=== PATIENT | female | born 1960 | race Caucasian/White ===

== ENCOUNTER 2017-01-07 16:28 | Emergency (ER) | payer OTHER ==
[~2017-01-07] VITALS: Ht 170.2 cm; Wt 66.2 kg
[~2017-01-07 16:28] MED LIST: ABRAXANE100 MG/20 IV; ACIDOPHILUS LA1 EACH PO; AFRIN30 ML NAS; ALOE VERA237 ML TOP; ANTI-NAUSEA GI1 EACH PO; AVASTIN100 MG/4 M IV; BENEFIBER1 EAC1 PO; CEPHALEXIN500 MG PO; CIPROFLOXACIN500 MG PO; COL-RITE100 MG PO; DEXAMETHASONE4 MG PO; DICLOFENAC SODI75 MG PO; DOCUSATE SODIU100 MG PO; DOXYCYCLINE HY100 MG PO; DURAGESIC1 EAC1 TD; ENOXAPARIN60 MG/0.6 SUB-Q; EXCEDRIN MIGRA1 EAC2 PO; FIBER GUMMIES2.5 GM PO; FLAX SEED; GINGER ROOT; IBUPROFEN600 MG PO; LORAZEPAM1 MG PO; METOPROLOL TART25 MG PO; MIRALAX17 GM PO; MULTI ANTIBIOTI14 GM; MULTIVITAMINS1 EAC7 PO; NICOTINE PATCH1 EA TD; NORCO 5-325 TA1 EACH PO; OMEPRAZOLE20 MG PO; ONDANSETRON HCL8 MG PO; ONDANSETRON ODT8 MG PO; OXYCODONE HCL5 MG PO; PERCOCET 5-3251 EACH PO; PERCOCET 7.5-31 EACH PO; PROBIOTIC1 EAC1 PO; PROCHLORPERAZIN10 MG PO; PROTONIX40 MG PO; REGLAN10 MG PO; ZITHROMAX250 MG PO; ZOFRAN ODT4 MG PO; ZOFRAN ODT4 MG SL; ZOFRAN8 MG PO
[2017-01-07] MEDS ORDERED: PROTONIX40 MG PO (16:46)
[2017-01-07] MEDS ORDERED: DOXYCYCLINE HY100 MG PO (16:46)
[2017-01-07] MEDS ORDERED: NYSTATIN-TRIAMC15 G1 TOP (16:47)
[2017-01-07] MEDS ORDERED: EXCEDRIN MIGRA1 EAC2 PO (16:47)
[2017-01-07] MEDS ORDERED: BENADRYL25 MG PO (16:47)
[2017-03-28] MEDS ORDERED: ZEJULA100 MG PO (10:40)
[2017-04-25] MEDS ORDERED: PHENERGAN25 MG PR (11:03)
[2017-07-02] MEDS ORDERED: CIPRO500 MG PO (13:53)
[2017-07-04] MEDS ORDERED: NORCO 5-325 TA1 EACH PO (10:07)
== END 2017-01-07 17:52 | disposition home or self-care (01) ==
LOC: ED 16:28
DX: R13.10 Dysphagia, unspecified (principal); C56.9 Malignant neoplasm of unspecified ovary; F17.200 Nicotine dependence, unspecified, uncomplicated; Z90.710 Acquired absence of both cervix and uterus; Z90.49 Acquired absence of other specified parts of digestive tract; Z88.8 Allergy status to other drugs, medicaments and biological substances; Z88.0 Allergy status to penicillin; Z88.5 Allergy status to narcotic agent; Z79.899 Other long term (current) drug therapy; Z79.82 Long term (current) use of aspirin
CPT/HCPCS: 99282

== ENCOUNTER 2017-04-17 09:21 | Emergency (ER) | payer OTHER ==
[~2017-04-17] VITALS: Ht 170.2 cm; Wt 60.8 kg
[~2017-04-17 09:21] MED LIST changes: +BENADRYL25 MG PO; +NYSTATIN-TRIAMC15 G1 TOP; +ZEJULA100 MG PO
[2017-04-17] MEDS ORDERED: PERCOCET 5-3251 EACH PO (12:49)
[2017-04-17] MEDS ORDERED: PROMETHAZINE HC25 M1 PO (12:49)
[2017-04-25] MEDS ORDERED: PHENERGAN25 MG PR (11:03)
[2017-07-02] MEDS ORDERED: CIPRO500 MG PO (13:53)
[2017-07-04] MEDS ORDERED: NORCO 5-325 TA1 EACH PO (10:07)
== END 2017-04-17 13:23 | disposition home or self-care (01) ==
LOC: ED 09:21
DX: C56.9 Malignant neoplasm of unspecified ovary (principal); F17.200 Nicotine dependence, unspecified, uncomplicated; Z90.710 Acquired absence of both cervix and uterus; Z88.8 Allergy status to other drugs, medicaments and biological substances; Z88.0 Allergy status to penicillin; Z88.5 Allergy status to narcotic agent; Z79.899 Other long term (current) drug therapy; Z79.82 Long term (current) use of aspirin
CPT/HCPCS: 36415; 74176; 80053; 81001; 83690; 85025; 96361; 96374; 96375; 99284; J1170; J2405; J7030

== ENCOUNTER 2017-06-25 11:27 | Emergency (ER) | payer OTHER ==
[~2017-06-25] VITALS: Ht 170.2 cm; Wt 57.1 kg
[~2017-06-25 11:27] MED LIST changes: +PHENERGAN25 MG PR; +PROMETHAZINE HC25 M1 PO
[2017-07-02] MEDS ORDERED: CIPRO500 MG PO (13:53)
[2017-07-04] MEDS ORDERED: NORCO 5-325 TA1 EACH PO (10:07)
== END 2017-06-25 15:03 | disposition home or self-care (01) ==
LOC: ED 11:27
DX: R11.2 Nausea with vomiting, unspecified (principal); C78.89 Secondary malignant neoplasm of other digestive organs; C78.7 Secondary malignant neoplasm of liver and intrahepatic bile duct; C56.9 Malignant neoplasm of unspecified ovary; F17.200 Nicotine dependence, unspecified, uncomplicated; Z90.710 Acquired absence of both cervix and uterus; Z88.8 Allergy status to other drugs, medicaments and biological substances; Z88.0 Allergy status to penicillin; Z88.1 Allergy status to other antibiotic agents
CPT/HCPCS: 80053; 82150; 83690; 85025; 96361; 96374; 96375; 99283; J2405; J7030

== ENCOUNTER 2017-06-29 20:21 | Emergency (ER) | payer OTHER ==
[~2017-06-29] VITALS: Ht 170.2 cm; Wt 57.1 kg
--- OUTSIDE RECORDS SUMMARY | 2017-06-29 20:39 | XMS | Clinical Summary ---
Demographics + + + | Address | [address] | | | [place] [address] | + + + | Home Phone | | + + + | Preferred Language | Unknown | + + + | Marital Status | | + + + | Spiritism Affiliation | CAT | + + + | Race | White | + + + | Ethnic Group | Not or | + + + Author + + + | Author | [facility] | + + + | Organization | [facility] | + + + | Address | Unknown | + + + | Phone | Unavailable | + + + Support +------+ + + + | Name | Relationship | Address | Phone | +------+ + + + ECON | Unknown | | +------+ + + + ECON | [place] [address] | | +------+ + + + Care Team Providers + +------+-------+ | Care Engagement Director Name | Role | Phone | + +------+-------+ | Roman Sanchez DO | PP | tel | + +------+-------+ Source Comments ABBI is fully live on both [facility] and [facility] InPatient.[facility] Allergies + + + + + + | Active Allergy | Reactions | Severity | Noted | Comments | | | | | Date | | + + + + + + | Codeine | | | 11/27/19 | Doesn't remember | | | | | 14 | reaction. Has | | | | | | tolerated | | | | | | oxycodone/morphine | + + + + + + | Penicillins | | High | 11/27/19 | As a child. | | | | | 14 | remembers that she | | | | | | required | | | | | | hospitalization. | | | | | | Tolerates | | | | | | cephalosporins. | + + + + + + Current Medications + + +-------+---------+------+------+-------+ | Prescription | Sig. | Disp. | Refills | Star | End | Statu | | | | | | t | Date | s | | | | | | Date | | | + + +-------+---------+------+------+-------+ | TEMAZEPAM 15 mg | Take 15 mg by mouth | | | 09/3 | | Activ | | oral capsule | once daily at | | | 0/20 | | e | | | bedtime as needed. | | | 14 | | | + + +-------+---------+------+------+-------+ | OMEPRAZOLE 20 mg | Take 20 mg by mouth | | | 09/0 | | Activ | | oral capsule,delayed | once daily at | | | 8/20 | | e | | release(DR/EC) | bedtime. | | | 14 | | | + + +-------+---------+------+------+-------+ | LORazepam 1 mg | Take 1 mg by mouth | | | | | Activ | | oral tablet | every four hours as | | | | | e | | | needed for anxiety. | | | | | | + + +-------+---------+------+------+-------+ Active Problems + + + | Problem | Noted Date | + + + | Vaginal cuff dehiscence | 12/25/2012 | + + + | Malignant neoplasm of ovary (HCC) | 12/07/2012 | + + + | Abdominal mass | 11/26/2012 | + + + Family History + + +------+ + | Medical History | Relation | Name | Comments | + + +------+ + | Non-contributory | Father | | COPD | + + +------+ + | Diabetes | Mother | | | + + +------+ + | Heart Disease | Mother | | pacemaker | + + +------+ + | Hypertension | Mother | | | + + +------+ + | Cancer | Sister | | from pancreatic cancer at age 52 | + + +------+ + + +------+--------+ + | Relation | Name | Status | Comments | + +------+--------+ + | Father | | | | + +------+--------+ + | Mother | | | | + +------+--------+ + | Sister | | | | + +------+--------+ + Social History + +-------+ +--------+------+ | Tobacco Use | Types | Packs/Day | Years | Date | | | | | Used | | + +-------+ +--------+------+ | Current Every Day | | 0.5 | 34 | | | Smoker | | | | | + +-------+ +--------+------+ + +---+---+---+ | Smokeless Tobacco: | | | | | Never Used | | | | + +---+---+---+ + + +---------+ + | Alcohol Use | Drinks/We | oz/Week | Comments | | | ek | | | + + +---------+ + | No | | | | + + +---------+ + + + + | Sex Assigned at | Date Recorded | | | | + + + | Not on file | | + + + Last Filed Vital Signs + + + + | Vital Sign | Reading | Time Taken | + + + + | Blood Pressure | 100/64 | 04/04/2014 3:06 PM PDT | + + + + | Pulse | 65 | 04/04/2014 3:06 PM PDT | + + + + | Temperature | 36.8 C (98.2 F) | 04/04/2014 3:06 PM PDT | + + + + | Respiratory Rate | 16 | 12/26/2012 11:43 AM PDT | + + + + | Oxygen Saturation | 99% | 04/04/2014 3:06 PM PDT | + + + + | Inhaled Oxygen | - | - | | Concentration | | | + + + + | Weight | 78.1 kg (172 lb 1.6 | 04/04/2014 3:06 PM PDT | | | oz) | | + + + + | Height | 170.2 cm (5' 7") | 04/04/2014 3:06 PM PDT | + + + + | Body Mass Index | 26.95 | 04/04/2014 3:06 PM PDT | + + + + Plan of Treatment + + + + + | Health Maintenance | Due Date | Last Done | Comments | + + + + + | MAMMOGRAM | | | | | | 2 | | | + + + + + | INFLUENZA VACCINE | | | | | (FLU SHOT) | 7 | | | + + + + + Implants + +------+--------+ +--------+--------+--------+ | Implanted | Type | Area | Manufacture | Device | Expira | Model | | | | | r | | tion | / | | | | | | Identi | Date | Serial | | | | | | fier | | / Lot | + +------+--------+ +--------+--------+--------+ | Catheter Port Titanium 9.6fr | | Right: | BARD | | 04/29/ | [id number] | | Open Ended Sl Venous - | | Chest | | | 2015 | 0 / | | [id number]: Qty: 1 on | | | | | | /[id number] | | 12/01/2012 by Kaylah, | | | | | | 145 | | Deidra Rossi MD | | | | | | | + +------+--------+ +--------+--------+--------+ Results LAB REPORTS (05/25/4578) + + | Narrative | + + | | + + + + | Procedure Note | + + | [facility] - 04/18/2014 10:35 AM PDT | + + + + | Transcriptions | + + | [facility] - 04/18/2014 10:35 AM PDT | + + from Last 3 Months
[2017-06-30] MEDS ORDERED: DILAUDID2 MG PO (01:05)
[2017-07-02] MEDS ORDERED: CIPRO500 MG PO (13:53)
[2017-07-04] MEDS ORDERED: NORCO 5-325 TA1 EACH PO (10:07)
[2017-07-18] MEDS ORDERED: VENTOLIN HFA18 GM (10:07)
[2017-07-18] MEDS ORDERED: MINERAL OIL135 ML PR (10:07)
== END 2017-06-30 01:31 | disposition home or self-care (01) ==
LOC: ED 20:21
DX: C56.9 Malignant neoplasm of unspecified ovary (principal); C78.7 Secondary malignant neoplasm of liver and intrahepatic bile duct; C78.89 Secondary malignant neoplasm of other digestive organs; F17.200 Nicotine dependence, unspecified, uncomplicated; Z90.710 Acquired absence of both cervix and uterus; Z90.49 Acquired absence of other specified parts of digestive tract; Z88.8 Allergy status to other drugs, medicaments and biological substances; Z91.048 Other nonmedicinal substance allergy status; Z88.0 Allergy status to penicillin; Z88.5 Allergy status to narcotic agent; Z79.899 Other long term (current) drug therapy
CPT/HCPCS: 74177; 80053; 81001; 83690; 85025; 96361; 96374; 96375; 99284; J1170; J2405; J7030; Q9967

== ENCOUNTER 2017-07-07 06:50 | Day surgery (SDC) | payer OTHER ==
[~2017-07-07] VITALS: Ht 170.2 cm; Wt 54.9 kg
[~2017-07-07 06:50] MED LIST changes: +CIPRO500 MG PO; +DILAUDID2 MG PO
--- NOTE | 2017-07-07 10:24 | NUR ---
07/07/17 Dilma Calvert 1016 - PT ARRIVED TO PACU. MAINTAINING OWN AIRWAY.
[2017-07-07] MEDS ORDERED: BACTRIM 400-801 EACH PO (10:33)
[2017-07-07] MEDS ORDERED: BACTRIM DS TAB1 EACH PO (10:34)
--- NOTE | 2017-07-07 11:03 | NUR ---
PORT ASSESSED, WNL. BRISK BLOOD RETURN NOTED. PORT HEPARIN LOCKED PER PROTOCOL. BANDAID DECLINED.
--- NOTE | 2017-07-07 14:32 | NUR ---
PT CURLED UP IN BED, IN OBVIOUS DISCOMFORT-HER FAMILY BY HER SIDE. SHE REQUESTED PRAYER AND ASKED IF I COULD GET RN FOR SOME PAIN CONTROL. I CONTACTED JAGRUTI Ang, AND SHE STATED THAT SHE IS WAITING ON MEDS FROM PHARMACY. WILL FOLLOW NEEDED
--- NOTE | 2017-07-16 17:23 | OR ---
[facility] [address] [place], [place] [address] Signed DATE OF OPERATION: 07/07/2017 SURGEON: Parul Goncalves MD PREOPERATIVE DIAGNOSES: 1. Progressive left hydronephrosis. 2. Metastatic ovarian carcinoma with pelvic carcinomatosis. POSTOPERATIVE DIAGNOSES: 1. Progressive left hydronephrosis. 2. Metastatic ovarian carcinoma with pelvic carcinomatosis. NAME OF PROCEDURES: 1. Cystoscopy with left retrograde pyelogram. 2. Insertion of left indwelling ureteral stent. ANESTHESIA: MAC. ESTIMATED BLOOD LOSS: None. COMPLICATIONS: None. SPECIMENS: None. INDICATIONS FOR PROCEDURE: Ms. Pike is a very pleasant 56-year-old female with metastatic ovarian cancer. She is currently being followed by Dr. Albert who recently obtained a CT scan, which revealed progressively worsening left hydronephrosis down to the level of the pelvic sidewall. The hydronephrosis is due to be secondary to extrinsic compression of the distal left ureter due to carcinomatosis. Both Dr. Albert and the patient would like to pursue placement of an indwelling ureteral stent into the left kidney to preserve function on that side, and to prevent future infection due to pooling of urine within the kidney. OPERATIVE FINDINGS: 1. On cystoscopy, there was no evidence of any suspicious masses, lesions, or stones. Electronically Signed By: PARUL GONCALVES MD 07/16/17 1723 PATIENT NAME: ANIKA PIKE OPERATIVE REPORT DATE OF : 62 PHYSICIAN: PARUL GONCALVES MD REPORT #: [id number] REPORT IS CONFIDENTIAL AND NOT TO BE RELEASED WITHOUT AUTHORIZATION [facility] [address] [place], [place] [address] Signed Bilateral ureteral orifices are in their normal anatomic location. 2. Left retrograde pyelogram revealed significant narrowing of the terminal 6 cm portion of the left ureter. 3. I attempted to pass a 6-[place] double-J ureteral stent; however, my attempt was met with too much resistance. 4. A 5 x 26 cm Contour double-J ureteral stent was inserted into the left ureter without difficulty. DESCRIPTION OF PROCEDURE: After informed consent was obtained, the patient was taken back to the operative room. The [facility] was [facility] the operating room table where MAC anesthesia was induced. She was placed in the dorsal lithotomy position, and her genitalia were prepped and draped in the standard sterile fashion. Using a 30-degree lens on a 22-[place] introducer, a rigid cystoscope was inserted through the urethra and into bladder under direct visualization. Panendoscopic views of the bladder were then obtained. Please see the above findings. Attention was turned to the left ureteral orifice. A cone-tipped catheter was advanced to the level of the left UO and a left retrograde pyelogram was performed. Please see the above findings. I then inserted a 0.035 Sensor wire into the left ureter and up into the left collecting system. I confirmed placement of the wire via fluoroscopy. I initially attempted passage of a 6 x 26 cm double-J ureteral stent; however, I met too much resistance and the stent was unable to be passed. I took the 6 x 26 stent off the table and instead tried to pass a 5 x 26 cm stent. I was ultimately able to pass a 5-[place] by 26 cm double-J ureteral stent into the patient's left ureter under direct visualization without difficulty. An adequate proximal coil was seen on fluoroscopy along with an adequate distal coil on cystoscopy. The patient's bladder was then drained and cystoscope was removed. The procedure was then terminated. The patient tolerated the procedure well without any complication. She will now be transferred to the postanesthesia care unit in stable condition. DISPOSITION: Ms. Pike will be discharged to home later today in the company of her family. She will be given 5 days' worth of Bactrim double strength for prophylaxis. She will require ureteral stent exchange in approximately 4 to 6 months' time. Parul Goncalves MD AR/MODL Electronically Signed By: PARUL GONCALVES MD 07/16/17 1723 PATIENT NAME: ANIKA PIKE OPERATIVE REPORT DATE OF : 62 PHYSICIAN: PARUL GONCALVES MD REPORT #: [id number] REPORT IS CONFIDENTIAL AND NOT TO BE RELEASED WITHOUT AUTHORIZATION [address] [address] Signed /[id number] Electronically Signed By: PARUL GONCALVES MD 07/16/17 1723 PATIENT NAME: ANIKA PIKE OPERATIVE REPORT DATE OF : 62 PHYSICIAN: PARUL GONCALVES MD REPORT #: [id number] REPORT IS CONFIDENTIAL AND NOT TO BE RELEASED WITHOUT AUTHORIZATION
[2017-07-18] MEDS ORDERED: MINERAL OIL135 ML PR (10:07)
[2017-07-18] MEDS ORDERED: VENTOLIN HFA18 GM (10:07)
== END 2017-07-07 11:20 | disposition home or self-care (01) ==
LOC: DS 06:50
PROVIDERS: Urology
PROC: BT1FYZZ Fluoroscopy of Left Kidney, Ureter and Bladder using Other Contrast (ICD-10-PCS; 2017-07-07)
PROC: 0T778DZ Dilation of Left Ureter with Intraluminal Device, Via Natural or Artificial Opening Endoscopic (ICD-10-PCS; principal; 2017-07-07 08:15)
DX: N13.2 Hydronephrosis with renal and ureteral calculous obstruction (principal); C79.89 Secondary malignant neoplasm of other specified sites; F17.210 Nicotine dependence, cigarettes, uncomplicated; Z90.49 Acquired absence of other specified parts of digestive tract; Z98.890 Other specified postprocedural states; Z79.899 Other long term (current) drug therapy; Z88.0 Allergy status to penicillin; Z88.5 Allergy status to narcotic agent; Z88.8 Allergy status to other drugs, medicaments and biological substances
CPT/HCPCS: 00910; 77001; C2617; J0696; J1170; J2250; J2405; J2704; J3010; J7120

== ENCOUNTER 2017-07-10 18:13 | Emergency (ER) | payer OTHER ==
[~2017-07-10] VITALS: Ht 170.2 cm; Wt 54.9 kg
--- OUTSIDE RECORDS SUMMARY | ~2017-07-10 | XMS | Clinical Summary ---
Demographics + + + | Address | [address] | | | [place] [address] | + + + | Home Phone | | + + + | Preferred Language | Unknown | + + + | Marital Status | | + + + | Judaism Affiliation | CAT | + + + [...] | +------+ + + + ECON | [place] [address] | | +------+ + + + Care Team Providers + +------+-------+ | Care Network Programmer Name | Role | Phone | + +------+-------+ | Roman Sanchez DO | PP | tel | + +------+-------+ Source Comments ABBI is fully live on both [facility] and [facility] InPatient.[facility] Allergies + + + + + + [...] Right: | BARD | | 04/29/ | [id number] | | Open Ended Sl Venous - | | Chest | | | 2015 | 0 / | | [id number]: Qty: 1 on | | | | [...]
--- OUTSIDE RECORDS SUMMARY | ~2017-07-10 | XMS | Clinical Summary ---
Demographics + + + | Address | [address] | | | [place] [address] | + + + | Home Phone | | + + + | Preferred Language | Unknown | + + + | Marital Status | | + + + | Taoism Affiliation | CAT | + + + [...] + + + ECON | [place] [address] | | +------+ + + + Care Team Providers + +------+-------+ | Care Member Service Representative Name | Role | Phone | + +------+-------+ | Roman Sanchez DO | PP | tel | + +------+-------+ Source Comments ABBI is fully live on both [facility] Ambulatory and [facility] InPatient.[facility] Allergies + + + + + + [...] Right: | BARD | | 04/29/ | [id number] | | Open Ended Sl Venous - | | Chest | | | 2015 | 0 / | | [id number]: Qty: 1 on | | | | [...]
[~2017-07-10 18:13] MED LIST changes: +BACTRIM 400-801 EACH PO; +BACTRIM DS TAB1 EACH PO
[2017-07-11] MEDS ORDERED: MIRALAX17 GM PO (10:31)
[2017-07-18] MEDS ORDERED: MINERAL OIL135 ML PR (10:07)
[2017-07-18] MEDS ORDERED: VENTOLIN HFA18 GM (10:07)
== END 2017-07-11 00:17 | disposition home or self-care (01) ==
LOC: ED 18:13
DX: K59.00 Constipation, unspecified (principal); F17.200 Nicotine dependence, unspecified, uncomplicated; Z88.8 Allergy status to other drugs, medicaments and biological substances; Z88.0 Allergy status to penicillin; Z88.5 Allergy status to narcotic agent; Z79.899 Other long term (current) drug therapy; Z79.891 Long term (current) use of opiate analgesic
CPT/HCPCS: 74177; 80053; 83615; 85025; 86304; 96361; 96374; 96375; 99284; J1170; J2405; J7030; Q9967